=== PATIENT | male | born 1965 | race Caucasian/White ===

== ENCOUNTER 2022-04-02 08:12 | Outpatient (CLI) | payer BC, SELFPAY ==
--- NOTE | 2022-04-02 09:00 | CRLHL7_ITS ---
For Patients: As a result of the Century Cures Act, medical imaging exams and procedure reports are released immediately into your electronic medical record. You may view this report before your referring provider. If you have questions, please contact your health care provider. Indication: Diverticulitis 1 month ago, follow-up Technique: Postcontrast CT abdomen and pelvis. Oral water. 98 cc Isovue 370 intravenous contrast. Please note that all CT scans at this facility use dose modulation, iterative reconstruction, and/or weight-based dosing when appropriate to reduce radiation dose to as low as reasonably achievable. Comparison: 09/15/2018 Findings: Lung bases clear. Fatty liver. Gallbladder normal. Splenic calcifications. Adrenal glands normal. Normal kidneys. Bladder normal. Prostate heterogeneous. Diverticular change to the colon. No acute inflammation. No fistula, free air, free fluid, abscess or obstruction. No adenopathy. Normal ureters. Pancreas normal. Incidental duodenal diverticulum. Multilevel discogenic spurring. No fracture. Impression: Colonic diverticulosis. No residual inflammation. Please note that all CT scans at this facility use dose modulation, iterative reconstruction, and/or weight-based dosing when appropriate to reduce radiation dose to as low as reasonably achievable. Dictated by Quentin Sy MD @ 04/02/2022 12:05:59 PM (Electronically Signed)
== END 2022-04-02 08:13 | disposition home or self-care (01) ==
LOC: CT 08:13
PROVIDERS: PCP Physician Assistant Medical; Visit Provider Physician Assistant Medical
DX: K57.92 Diverticulitis of intestine, part unspecified, without perforation or abscess without bleeding (principal)
CPT/HCPCS: 74177; Q9967

== ENCOUNTER 2022-08-30 08:47 | Outpatient (CLI) | payer BC, SELFPAY | END 2022-08-30 08:48 | disposition home or self-care (01) | LOC: NFLDREF 09-01 10:04 | PROVIDERS: PCP Physician Assistant Medical; Referring Provider Physician Assistant Medical; Visit Provider Physician Assistant Medical | DX: E34.9 Endocrine disorder, unspecified (principal); E11.9 Type 2 diabetes mellitus without complications | CPT/HCPCS: 84403 ==

== ENCOUNTER 2022-11-26 07:25 | Outpatient (CLI) | payer BC, SELFPAY | END 2022-11-26 07:26 | disposition home or self-care (01) | LOC: NFLDREF 20:28 | PROVIDERS: PCP Physician Assistant Medical; Referring Provider Physician Assistant Medical; Visit Provider Physician Assistant Medical | DX: E34.9 Endocrine disorder, unspecified (principal); E78.5 Hyperlipidemia, unspecified; E11.9 Type 2 diabetes mellitus without complications | CPT/HCPCS: 80061; 84403; 84450; 84460 ==

== ENCOUNTER 2023-02-25 07:34 | Outpatient (CLI) | payer BC, SELFPAY | END 2023-02-25 07:35 | disposition home or self-care (01) | LOC: NFLDREF 02-28 15:31 | PROVIDERS: PCP Physician Assistant Medical; Referring Provider Physician Assistant Medical; Visit Provider Physician Assistant Medical | DX: E11.9 Type 2 diabetes mellitus without complications (principal); N52.9 Male erectile dysfunction, unspecified; E78.5 Hyperlipidemia, unspecified; G25.81 Restless legs syndrome | CPT/HCPCS: 80053; 80061; 82043; 82570; 84153 ==

== ENCOUNTER 2024-02-23 15:48 | Outpatient (CLI) | payer BC, SELFPAY | END 2024-02-23 15:49 | disposition home or self-care (01) | LOC: NFLDREF 02-24 08:56 | PROVIDERS: PCP Physician Assistant Medical; Referring Provider Physician Assistant Medical; Visit Provider Physician Assistant Medical | DX: Z00.00 Encounter for general adult medical examination without abnormal findings (principal); E78.2 Mixed hyperlipidemia; E11.42 Type 2 diabetes mellitus with diabetic polyneuropathy; G47.00 Insomnia, unspecified; F41.9 Anxiety disorder, unspecified; G62.89 Other specified polyneuropathies | CPT/HCPCS: 80053; 80061; 82043; 82570; 84443 ==

== ENCOUNTER 2025-01-07 11:33 | Emergency (ER) | payer BC, SELFPAY ==
--- OUTSIDE RECORDS SUMMARY | 2022-03-19 06:15 | XMS_ITS | Continuity of Care Document ---
Author Organization [facility] enter Address [address] [place] [address] Phone Care Team Providers Care Director Supply Name Role Phone [facility] Unavailable Unava ilable Procedures Procedure Date INTERLAMINAR CRV OR THRC INTERLAMINAR CRV OR THRC INTERLAMINAR CRV OR THRC INTERLAMINAR CRV OR THRC Advance Directives Directive Yes / No Effective Date File Name No Information Encounters Encounter Description Practice Location Reason(s) For Visit Diagnoses Date Provider Providers Copied on Encounter [facility], [address] [place] [address], [id number], tel:[phone] [place] [address] No Information 2 [facility]. [address] [place] [address], [id number], [place]. tel:[phone] Referring Provider: Black Jean, [address] [place], [address] . tel:[phone] [facility], [address] [place] [address], [id number], tel:[phone] [place] [address] No Information 2 [facility]. [address] [place] [address], [id number], . tel:[phone] Referring Provider: Tulio Ness, [address] [place], [address]. tel:[phone] Family History Family Member Type Diagnosis Age At Onset No Information Payers Payer name Insurance type Covered green party ID Authorjanettea lebron(s) [facility] [id number] Social History Type Description Quantity Date Captured Comments Sex Male Smoking Status No Information Chief Complaint And Reason For Visit No Information Reason For Referral Reason For Referral No Information History Of Present Illness Encounter Date Complaint History Of Prese nt Illness No Information Functional Status Date Functional Assessmen t No Information Instructions Date Instruction Additional Infor mation No Information Assessments Type Assessment Date No Information Patient Care Teams Name Effective Dates (start - stop) Status Members No Information
--- OUTSIDE RECORDS SUMMARY | 2022-03-19 06:15 | XMS_ITS | Continuity of Care Document ---
Author Organization [facility] Address [address] [place] [address] Phone Care Team Providers Care Physician Practice Manager Name Role Phone Tde PARIKH, Black Unavailable Unavailable Allergies, Adverse Reactions, Alerts Substance Reaction Status Criticality bee venom protein (honey bee) Active No Information Medications Medication Instructions Dosage Effective Dates (start - stop) Status Comments diclofenac sodium 50 mg tablet,delayed release take 1 tablet by oral route 2 times every day 50 MG - Active Compounded Medication Apply thin layer to affected area (knees, ankles) up to 4x/day - Active Flurbiprofen 10% , baclofen 2%, lidocaine 5%, gabapentin 6% metformin 1,000 mg tablet take 1 tablet by oral route every day with morning and evening meals 1000 MG - Active alprazolam 1 mg tablet take 1 tablet by oral route every day 1 MG - Active sertraline 50 mg tablet take 1 tablet by oral route every day 50 MG - Active cyclobenzaprine 10 mg tablet take 1 Tablet by oral route 3 times every day 10 MG - Active Procedures Procedure Date INTERLAMINAR CRV OR THRC OFFICE/OUTPATIENT VISIT, EST INTERLAMINAR CRV OR THRC Drug Urine Toxology With Chromatography Drug test def 1-7 classes OFFICE/OUTPATIENT VISIT, EST INJ TRIGGER POINT, 1/2 MUSCL OFFICE CONSULTATION Advance Directives Directive Yes / No Effective Date File Name No Information Encounters Encounter Description Practice Location Reason(s) For Visit Diagnoses Date Provider Providers Copied on Encounter [facility], [address] [place] [address], [id number] , [place] [phone] [facility] Other intervertebral disc degeneration, thoracic region 2 Ted Black. [address] [place] [address], [id number], [place]. tel:[phone] Referring Provider: Black Bryant, [address] [place], [place] [address]José [place], [address] . tel:[phone] OFFICE/OUTPAT IENT VISIT, EST [facility], [address] [place] [address], [id number] , [place] tel:[phone] [facility] Back pain (chief complaint) Chronic pain syndromeBilater al primary osteoarthritis of kneePain in right ankle and joints of right footOther intervertebral disc degeneration, thoracic regionMyalgia, other siteLong term (current) use of opiate analgesic 2 Pearl Jenna. [address], [place], [place], [id number], [place]. tel:[phone] Referring Provider: Black Bryant, [address] [place] [address] [place], [address] . tel:[phone] [facility], [address] [place] [address], [id number] , [place] tel:[phone] [facility] Other intervertebral disc degeneration, thoracic region 2 Thi Antunez. [facility], [address], [place], [address], [place]. tel:[phone] Referring Provider: Black Bryant, [address] [place] [address] [place], [address] . tel:[phone] [facility], [address] [place] [address], [id number] , [place] tel:[phone] [facility] No Information 2 Pearl Jenna. [address], [place], [place], [id number], [place]. tel:[phone] OFFICE/OUTPAT IENT VISIT, EST [facility], [address] [place] [address], [id number] , [place] tel:[phone] [facility] Back pain (chief complaint) Chronic pain syndromeBilater al primary osteoarthritis of kneePain in right ankle and joints of right footLong term (current) use of opiate analgesicEncoun ter for therapeutic drug level monitoringOther intervertebral disc degeneration, thoracic regionMyalgia, other site 2 Pearl West. [address], [place], [place], [id number], [place]. tel:[phone] Referring Provider: Black Bryant, [address] [place], [place] [address]Jos[place], [address] . tel:[phone] OFFICE CONSULTATION [facility], [address] [place] [address], [id number] , [place] tel:[phone] [facility] Back Pain (chief complaint) bilateral knee pain (chief complaint) Chronic pain syndromePain in thoracic spineBilateral primary osteoarthritis of kneeCausalgia of left lower limbCausalgia of right lower limbPain in right ankle and joints of right footLong term (current) use of opiate analgesic 0 Laron Styles. [address] [place] [address], [id number], [place]. tel:[phone] Referring Provider: Black Bryant, [address] [place] [address] [place], [address] . tel:[phone] [facility], [address] [place] [address], [id number] , [place] tel:[phone] [facility] No Information 0 No Information Referring Provider: Black Bryant, [address] [place], [place] [address]José [place], [address] . tel:[phone] Family History Family Member Type Diagnosis Age At Onset No Information Payers Payer name Insurance type Covered green party ID Authoriza tion(s) [facility] [id number] Social History Type Description Quantity Date Captured Comments Sex Male Smoking Status No Information Chief Complaint And Reason For Visit No Information Reason For Referral Reason For Referral No Information Plan Of Treatment Date Type Action Status Goal AST (SGOT). Due on due Goal ALT (SGPT). Due on due Goal UDT. Due on due Goal Creatinine. Due on due Goal Order Annual PT. Due on due Goal OARS. Due on due Goal AIRFIELD MANAGER Paperwork. Due on due Goal QUARRY PLANT CRUSHER OPERATOR Scanned. Due on due Goal Lipid panel. Due on due Goal PHQ-9. Due on du e Goal Weight. Due on d ue Goal CT-Colonography. Due on due Goal Medication Reconciliation. D ue on due Goal Review Allergy List. Due on due Goal Update Social History. Due o n due Goal Tobacco Use. Due on due Goal FIT-DNA. Due on due Goal Hepatitis C screening. Due o n due Goal Height. Due on d ue Goal Unhealthy drug use screening . Due on due Goal FIT. Due on due Goal Zoster vaccine (1st). Due on due Goal Creatinine. Due on due Goal OARS. Due on due Goal Order Annual PT. Due on due Goal UDT. Due on due Goal ALT (SGPT). Due on due Goal AIRFIELD MANAGER Paperwork. Due on due Goal AST (SGOT). Due on due Goal QUARRY PLANT CRUSHER OPERATOR Scanned. Due on due Goal Weight. Due on d ue Goal Hepatitis C screening. Due o n due Goal Unhealthy drug use screening . Due on due Goal CT-Colonography. Due on due Goal FIT-DNA. Due on due Goal Height. Due on d ue Goal PHQ-9. Due on du e Goal Review Allergy List. Due on due Goal Lipid panel. Due on due Goal FIT. Due on due Goal Zoster vaccine (1st). Due on due Goal Medication Reconciliation. D ue on due Goal Update Social History. Due o n due Goal Tobacco Use. Due on due Goal Weight. Due on d ue Goal Hepatitis C screening. Due o n due Goal Unhealthy drug use screening . Due on due Goal CT-Colonography. Due on due Goal FIT-DNA. Due on due Goal Height. Due on d ue Goal PHQ-9. Due on du e Goal Review Allergy List. Due on due Goal Lipid panel. Due on due Goal FIT. Due on due Goal Zoster vaccine (1st). Due on due Goal Medication Reconciliation. D ue on due Goal Update Social History. Due o n due Goal Tobacco Use. Due on due Goal Creatinine. Due on due Goal OARS. Due on due Goal Order Annual PT. Due on due Goal UDT. Due on due Goal ALT (SGPT). Due on due Goal AIRFIELD MANAGER Paperwork. Due on due Goal AST (SGOT). Due on due Goal QUARRY PLANT CRUSHER OPERATOR Scanned. Due on due Referral Ordered: MRI THORACIC SPINE W/O DYE ordered History Of Present Illness Encounter Date Complaint History Of Prese nt Illness Back pain Severity level i s 9. Duration: chronic. The problem is stable. It occurs persistently. Location of pain is middle back. The client describes the pain as sharp and tingling. Symptoms are aggravated by ascending stairs, bending, descending stairs, lifting, lying/rest, sitting, housework and movement. Symptoms are relieved by pain meds/drugs and rest. Comments: Lc metcalf s a 56 y/o man here for follow up consult regarding chronic lower back pain, BL knee, and BL ankle/foot pain. Pain is stable since JOSH and pain level is 9/10. Pain the most noticeable when he is very active, and when he tries to sleep at night or lie down. Back pain is primarily qmo-dj-zgaeq thoracic region (R>L). S/p T10-T11 Interlaminar Epidural Steroid Injection on 01/29/22 with no benefit. Inquires whether he should have a repeat injection and/or at a different level. Also inquires what can be done for knee and ankle pain as it is causing him to have a less favorable quality of life. Notes that his L knee no longer has cartilage. He is trying to schedule orthopedic consult at [facility]. Currently managed on Flexeril and CBD which provides moderate pain relief for increased functionality. Denies side effects from current medication regimen.No other concerns today. Comments: Lc metcalf s a 56 y/o man here for follow up consult regarding chronic lower back pain, BL knee, and BL ankle/foot pain Pain level is 9/10. Reports that he notices his pain the most when he is very active, and when he tries to sleep at night or lie down. Back pain is primarily los-ve-norkw thoracic region. Reports that he has done PT in the past. Also reports that he has had cortisone and rooster comb injections in BL knees that he would get every six weeks with benefit.Of note, he has not been in clinic since 2019.Currently managed on Flexeril which provides moderate pain relief for increased functionality. Reports that he does not want to be taking opioids; reports that they upset his stomach. Interested in medical cannabis re-certification.No other concerns today. Back pain Severity level i s 9. Duration: chronic. The problem is worsening. It occurs persistently. Location of pain is lower back. Pain is radiated to the left ankle, right ankle and BL knees. The client describes the pain as an ache and tingling. Symptoms are aggravated by ascending stairs, descending stairs, lying/rest, standing, twisting, walking, movement and prolonged positioning. Back Pain (comments) Lc martínez martinez for a virtual consult, referred by Dr. Nam at [facility]. The patient is a 54 y/o with back, bilateral knee, and bilateral ankle pain. Pain started about 4 years ago. Denies specific injury or inciting event. He was in the for several years and has been told that this contributed to OA of his joints. Per pt, he has a bulging disc in the thoracic region identified via x-ray. Pain is worse on the right side and radiates to his side. When pain flares it takes his breath away. Back pain is described as sharp. He completed a series of PT through [facility] about a year ago. Notes limited benefit following PT, no longer doing HEP.Ongoing pain of bilateral knees, R>L. ain is located in the back of the knees. Reports decreased ROM and inflammation in the knees. He has undergone arthroscopy for the right and left knee, approximately 6-8 yrs ago. Recent surgical consult at [facility]--surgeon recommended waiting for knee replacements until pt is 61 y/o. Reports diminishing benefit with cortisone and rooster comb injections. He wears compression socks and occasionally wears a knee brace.He currently manages pain with Tylenol. Was prescribed #30 tabs of [place] 5/325 on 09/21/19, managed by Dr. Nam. He was also recently certified for medical cannabis, which has provided significant sleep benefit, but causes side effects. Reports trying a cream from his that helped with his joint pain. Is open to options. No other concerns today. bilateral knee pain Location: bi lateral knee. Back Pain Severity level i s 8. Duration: chronic. The problem is fluctuating. It occurs persistently. Location of pain is lower back, BL knee and ankles.The patient describes the pain as an ache, numbness, sharp and tingling. Symptoms are aggravated by ascending stairs, bending, daily activities, descending stairs, lifting, standing, twisting and walking. Symptoms are relieved by heat, ice, pain meds/drugs, rest and medical cannabis. Functional Status Date Functional Assessmen t No Information Instructions Date Instruction Additional Infor mation No Information Assessments Type Assessment Date No Information Patient Care Teams Name Effective Dates (start - stop) Status Members No Information
--- OUTSIDE RECORDS SUMMARY | 2022-03-19 06:15 | XMS_ITS | Continuity of Care Document ---
Author Organization [facility] Address [address] [place] [address] Phone Care Team Providers Care Public Health Microbiologist Name Role Phone Ted PARIKH, Black Unavailable Unavailable Allergies, Adverse Reactions, [...] Diagnoses Date Provider Providers Copied on Encounter [facility], [address] [place] [address], [id number] , [place] [phone] [facility] Other intervertebral disc degeneration, thoracic region 2 Ted Black. [address] [place] [address], [id number], [place]. tel:[phone] Referring Provider: Black Bryant, [address] [place], [place] [address]José [place], [address] . tel:[phone] OFFICE/OUTPAT IENT VISIT, EST [facility], [address] [place] [address], [id number] , [place] tel:[phone] [facility] Back pain (chief complaint) Chronic pain syndromeBilater al primary osteoarthritis of kneePain in right ankle and joints of right footOther intervertebral disc degeneration, thoracic regionMyalgia, other siteLong term (current) use of opiate analgesic 2 Pearl Jenna. [address], [place], [place], [id number], [place]. tel:[phone] Referring Provider: Black Bryant, [address] [place] [address] [place], [address] . tel:[phone] [facility], [address] [place] [address], [id number] , [place] tel:[phone] [facility] Other intervertebral disc degeneration, thoracic region 2 Thi Antunez. [facility], [address], [place], [address], [place]. tel:[phone] Referring Provider: Black Bryant, [address] [place] [address] [place], [address] . tel:[phone] [facility], [address] [place] [address], [id number] , [place] tel:[phone] [facility] No Information 2 Pearl Jenna. [address], [place], [place], [id number], [place]. tel:[phone] OFFICE/OUTPAT IENT VISIT, EST [facility], [address] [place] [address], [id number] , [place] tel:[phone] [facility] Back pain (chief complaint) Chronic pain syndromeBilater al primary osteoarthritis of kneePain in right ankle and joints of right footLong term (current) use of opiate analgesicEncoun ter for therapeutic drug level monitoringOther intervertebral disc degeneration, thoracic regionMyalgia, other site 2 Pearl West. [address], [place], [place], [id number], [place]. tel:[phone] Referring Provider: Black Bryant, [address] [place], [place] [address]José [place], [address] . tel:[phone] OFFICE CONSULTATION [facility], [address] [place] [address], [id number] , [place] tel:[phone] [facility] Back Pain (chief complaint) bilateral knee pain (chief complaint) Chronic pain syndromePain in thoracic spineBilateral primary osteoarthritis of kneeCausalgia of left lower limbCausalgia of right lower limbPain in right ankle and joints of right footLong term (current) use of opiate analgesic 0 Laron Styles. [address] [place] [address], [id number], [place]. tel:[phone] Referring Provider: Black Bryant, [address] [place] [address] [place], [address] . tel:[phone] [facility], [address] [place] [address], [id number] , [place] tel:[phone] [facility] No Information 0 No Information Referring Provider: Black Bryant, [address] [place], [place] [address]José [place], [address] . tel:[phone] Family History Family Member Type Diagnosis Age At Onset No Information Payers Payer name Insurance type Covered alliance party ID Authoriza tion(s) [facility] [id number] Social History Type Description Quantity Date Captured [...] due Goal OARS. Due on due Goal TOEING STOCKINGS Paperwork. Due on due Goal SALESPERSON [place] AND GLASSWARE Scanned. Due on due Goal Lipid panel. [...] Goal ALT (SGPT). Due on due Goal TOEING STOCKINGS Paperwork. Due on due Goal AST (SGOT). Due on due Goal SALESPERSON [place] [employer]ASS[employer] Scanned. Due on due Goal Weight. Due [...] Goal ALT (SGPT). Due on due Goal TOEING STOCKINGS Paperwork. Due on due Goal AST (SGOT). Due on due Goal SALESPERSON [place] AND GLASSWARE Scanned. Due on due Referral Ordered: MRI [...] or lie down. Back pain is primarily vjk-mf-jeiyp thoracic region (R>L). S/p T10-T11 Interlaminar Epidural [...] is trying to schedule orthopedic consult at [facility]. Currently managed on Flexeril and CBD [...] or lie down. Back pain is primarily jpb-zv-pyqqs thoracic region. Reports that he has done [...] virtual consult, referred by Dr. Nam at [facility]. The patient is a 54 y/o with [...] He completed a series of PT through [facility] about a year ago. Notes limited benefit following PT, no longer doing HEP.Ongoing pain of bilateral knees, R>L. ain is located in the back of the knees. Reports decreased ROM and inflammation in the knees. He has undergone arthroscopy for the right and left knee, approximately 6-8 yrs ago. Recent surgical consult at [facility]--surgeon recommended waiting for knee replacements until pt is 61 y/o. Reports diminishing benefit with cortisone and rooster comb injections. He wears compression socks and occasionally wears a knee brace.He currently manages pain with Tylenol. Was prescribed #30 tabs of [place] 5/325 on 09/21/19, managed by Dr. Nam. [...]
--- OUTSIDE RECORDS SUMMARY | 2022-03-19 06:15 | XMS_ITS | Continuity of Care Document ---
Author Organization [facility] enter Address [address] [place] [address] Phone Care Team Providers Care Community Health Representative Name Role Phone [facility] Unavailable Unava ilable Procedures Procedure Date INTERLAMINAR CRV OR THRC INTERLAMINAR CRV OR THRC INTERLAMINAR CRV OR THRC INTERLAMINAR CRV OR THRC Advance Directives Directive Yes / No Effective Date File Name No Information Encounters Encounter Description Practice Location Reason(s) For Visit Diagnoses Date Provider Providers Copied on Encounter [facility], [address] [place] [address], [id number], tel:[phone] [place] [address] No Information 2 [facility]. [address] [place] [address], [id number], [place]. tel:[phone] Referring Provider: Black Jean, [address] [place], [address] . tel:[phone] [facility], [address] [place] [address], [id number], tel:[phone] [place] [address] No Information 2 [facility]. [address] [place] [address], [id number], . tel:[phone] Referring Provider: Tulio Ness, [address] [place], [address]. tel:[phone] Family History Family Member Type Diagnosis Age At Onset No Information Payers Payer name Insurance type Covered democrat ID Authorjanettea lebron(s) [facility] [id number] Social History Type Description Quantity Date Captured [...]
[2025-01-07] VITALS (9 sets, daily range): BP systolic 127–147; BP diastolic 78–85; PULSE 63–71; RESP 20; TEMP 36.1; O2SAT 94–97
--- NOTE | 2025-01-07 11:47 | ED_ITS ---
HPI - General Adult General Date Seen: 01/07/25 Chief complaint: Chest Pain Stated complaint: chest pain Time Seen by Provider: 01/07/25 11:47 History of Present Illness HPI narrative: 59-year-old gentleman referred to the ER today from the clinic for evaluation of chest pain. He has a history of type 2 diabetes, sleep apnea, hyperlipidemia, peripheral neuropathy, restless legs syndrome, fatty liver. Per notes from the clinic he woke up from sleep at about 330 this morning with sweatiness and tightness in his chest with shortness of breath. Like something was sitting on his chest. he was short of breath. He has a family history of coronary artery disease. Other risk factors include obesity, type 2 diabetes, hyperlipidemia. He has no personal history of coronary disease. He uses marijuana at night for his peripheral neuropathy. He does note that he had an episode of chest discomfort that happened about 3 or 4 months ago. Was single episode any did not go to the doctor for it. He has been healthy and well lately. Normal activity. He cut the lawn yesterday without any shortness of breath or chest pain. He did E canes checking yesterday for dinner. His current symptoms started about 330 in the morning. He was awoken from sleep. He had a squeezing discomfort in his central lower chest. It made him mildly short of breath. It lasted for several hours. He had to get up and pace around. He had a squeezing discomfort in his lower chest. Also little bit of abdominal pain pretty was nauseous. He felt short of breath. No pleuritic pain. No pain through to the back. He did take some aspirin (2 baby aspirin) at around 7. He called his clinic this morning because he had several hours of persistent discomfort and he went to the clinic. There he had an EKG that showed a right bundle branch block pattern. He had labs and he reports that he had a troponin level that was normal. Because of his persisting pain his clinic call an ambulance for him. He was transferred by ambulance from the clinic here to the hospital. While in the ambulance he notes that his pain resolved. He received an additional aspirin 162 mg by EMS. No nitro was given. Upon arrival here to the ER he has no ongoing symptoms. No recent travel or immobilization. No recent leg swelling. He has no personal history of coronary disease. Related Data Home Medications ?Medication ?Instructions ?Recorded ?Confirmed cyclobenzaprine 10 mg tablet 10 mg PO .Bedtime as need ed PRN 03/30/22 01/07/25 Previous Rx's ?Medication ?Instructions ?Recorded gabapentin 300 mg capsule 300 mg PO QHS #90 caps 02/22 trazodone 100 mg tablet 100 - 150 mg (1 - 1.5 x 100 mg) PO 02/23/24 QHS 90 days #135 tabs sertraline 100 mg tablet 100 mg PO QDAY #90 tabs 11/07 atorvastatin 20 mg tablet 20 mg PO QDAY #90 tabs 07/24 sildenafil 50 mg tablet 50 mg PO .As Needed PRN sexu al 08/03/24 activity #30 tabs tirzepatide 10 mg/0.5 mL 10 mg (0.5 mL) subcut QWEEK #2 mL 08/20/24 subcutaneous pen injector (Mounjaro) testosterone cypionate 200 mg/mL 100 mg (0.5 mL) IM QW T[place] #6 mL 11/05/24 intramuscular oil Allergies Allergy/AdvReac Type Severity Reaction Status Date / Time bee venom protein (honey bee) Allergy Mild Anaphylaxis Verified 01/07/25 11:39 [facility] Medical History (Updated 01/07/25 @ 14:35 by Pj Guido MD) Progressive angina ?I20.0 - Unstable angina (ICD-10) Chest pain ?R07.9 - Chest pain, unspecified (ICD-10) SOB (shortness of breath) ?R06.02 - Shortness of breath (ICD-10) Chronic low back pain ?M54.50 - Low back pain, unspecified (ICD-10) ?G89.29 - Other chronic pain (ICD-10) Herniation of intervertebral disc of thoracic region ?M51.24 - Other intervertebral disc displacement, thoracic region (ICD-10) Anxiety and depression ?F41.9 - Anxiety disorder, unspecified (ICD-10) ?F32.A - Depression, unspecified (ICD-10) Diverticulitis ?K57.92 - Diverticulitis of intestine, part unspecified, without perforation or abscess without bleeding (ICD-10) 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) ?K14.1 - Geographic tongue (ICD-10) Dislocation of temporomandibular joint ?S03.00XA - Dislocation of jaw, unspecified side, initial encounter (ICD-10) Surgical History History of total knee replacement (TKR) ?Z96.659 - Presence of unspecified artificial knee joint (ICD-10) History of vasectomy (02/12/10) ?Z98.52 - Vasectomy status (ICD-10) History of umbilical hernia repair ?Z98.890 - Other specified postprocedural states (ICD-10) ?Z87.19 - Personal history of other diseases of the digestive system (ICD-10) History of colonoscopy ?Z98.890 - Other specified postprocedural states (ICD-10) History of arthroscopy of knee (09/27/11) ?Z98.890 - Other specified postprocedural states (ICD-10) Family History Father Stroke Heart disease High blood pressure Sister Heart disease Social History Narrative: Consumes alcohol occasionally Does not use illicit drugs Non-smoker What is your current living situation?: I presently have a place to live Problems where you live: no known problems In the past 12 months, utilities in danger of being shut off: no In past 12 months, lack of transportation kept you from medical appts, meetings, work, or getting things needed for daily living: no In the past 12 mos, have been you worried that your food would run out before you had money to buy more?: never true In the past 12 mos, the food you bought just didn't last and you didn't have money to buy more?: never true Smoking Status: Never smoker How often does anyone, including family, friends and others, physically hurt you : never How often does anyone, including family, friends and others, insult or talk down to you: never How often does anyone, including family, friends and others, threaten you with harm: never How often does anyone, including family, friends and others, scream or curse at you: never Exam Narrative: Exam Narrative: Constitutional: Appears well-developed and well-nourished. Alert. Conversant. Non toxic. HENT: Head: Atraumatic. Nose: Nose normal. Mouth/Throat: Oral mucosa is clear and moist. no trismus. Pharynx normal. Tonsils symmetric. No tonsillar enlargement, erythema, or exudate. Eyes: Conjunctivae normal. EOM normal. Pupils equal, round, and reactive to light. No scleral icterus. Neck: Normal range of motion. Neck supple. No tracheal deviation present. No JVD Cardiovascular: Normal rate, regular rhythm. No gallop. No friction rub. No murmur heard. Symmetric radial and PT artery pulses Pulmonary/Chest: Effort normal. No stridor. No respiratory distress. No wheezes. No rales. No rhonchi . No tenderness. Abdominal: Soft. Bowel sounds normal. No distension. No mass. Epigastric and periumbilical tenderness. No rebound. No guarding. Musculoskeletal: RUE: Normal range of motion. No tenderness. No deformity LUE: Normal range of motion. No tenderness. No deformity RLE: Normal range of motion. No edema. No tenderness. No deformity LLE: Normal range of motion. No edema. No tenderness. No deformity Neurological: Alert and oriented to person, place, and time. Normal strength. CN II-VII intact. No sensory deficit. GCS eye subscore is 4. GCS verbal subscore is 5. GCS motor subscore is 6. Normal coordination Skin: Skin is warm and dry. No rash noted. No pallor. Normal capillary refill. Psychiatric: Normal mood. Normal affect. He is calm and polite. He wonders if this might have been a panic attack. Const: Vital Signs, click to edit/add: Vital Signs - 24 hr 01/07/25 11:46 01/07/25 11:51 01/07/25 12:00 Temperature 97.0 F L Pulse Rate 65 67 Pulse Rate [Pulse Oximeter] 70 Respiratory Rate 20 Blood Pressure Blood Pressure [Ri ght Upper Arm] 131/79 Pulse Oximetry 94 97 Oxygen Delivery Me thod Room Air 01/07/25 12:02 01/07/25 12:03 01/07/25 12:15 Temperature Pulse Rate 66 63 65 Pulse Rate [Pulse Oximeter] Respiratory Rate Blood Pressure 146/85 H Blood Pressure [Ri ght Upper Arm] Pulse Oximetry 96 96 95 Oxygen Delivery Me thod 01/07/25 12:16 01/07/25 12:31 01/07/25 14:41 Temperature Pulse Rate 69 71 Pulse Rate [Pulse Oximeter] Respiratory Rate Blood Pressure 147/81 H 136/81 127/78 Blood Pressure [Ri ght Upper Arm] Pulse Oximetry 96 96 Oxygen Delivery Me thod Course Vital Signs Vital signs: Initial Vital Signs Temperature 97.0 F L 01/07/25 11:46 Temperature Source Temporal Artery Scan 01/07/25 11:46 Pulse Rate 70 01/07/25 11:46 Respiratory Rate 20 01/07/25 11:46 Blood Pressure 131/79 01/07/25 11:46 Blood Pressure Mean 96 01/07/25 11:46 Oxygen Delivery Method Room Air 01/07/25 11:46 Vital Signs Temperature 97.0 F L 01/07/25 11:46 Pulse Rate 70 01/07/25 11:46 Respiratory Rate 20 01/07/25 11:46 Blood Pressure 131/79 01/07/25 11:46 Oxygen Delivery Method Room Air 01/07/25 11:46 Temperature 97.0 F L 01/07/25 11:46 Pulse Rate 71 01/07/25 14:41 Respiratory Rate 20 01/07/25 11:46 Blood Pressure 127/78 01/07/25 14:41 Pulse Oximetry 96 01/07/25 14:41 Oxygen Delivery Method Room Air 01/07/25 11:46 Medical Decision Making MDM Narrative Medical decision making narrative: This patient presents to the ER today for evaluation of lower substernal chest discomfort and squeezing with shortness of breath that awoke him from sleep at about 330 this morning.. Differential was broad. No evidence of palpitations, syncope or other cardiac dysrhythmia. Because of the chest pain he was sent to the ER today by EMS from his clinic. His clinic EKG did show a right bundle-branch block and a left anterior fascicular block. Initially was thought that the right bundle-branch block pattern was new, but in fact it was present on his EKG from 2021. We considered possible ACS, however workup with EKG and troponin is negative. Given time since onset of symptoms, we did check a 2nd troponin here in the ER. Combined with the 1st troponin from Urgent Care, I think this is sufficient to rule out non ST elevation [place]. HEART score is 5, which does put him at high risk category. Discussed this with the patient. He does not want stay in the hospital. I will order an outpatient stress test which can be done tomorrow. Initial order and initiation of prior authorization process started by our [facility] today.. EKG shows no evidence for pericarditis. Clinical presentation not suggestive of myocarditis. Chest x-ray shows no evidence for pneumonia, pneumothorax, pulmonary edema, pleural effusion, rib fracture, cardiomegaly. Mediastinum is normal on the x-ray. The patient has no ripping or tearing pain through to the back and has symmetric pulses on exam, no other acute neuro findings so I doubt aortic dissection. Risk of radiation and contrast exposure would outweigh the benefit of CT angiogram. He did have soap approved double thinners on exam. This raise possible concern for cholecystitis. Lipase is normal. Gallbladder ultrasound is normal. No evidence for cholecystitis or stones. We considered PE for this patient. However would be very unlikely since he had complete resolution of symptoms in route to the hospital. At this point the risk of contrast nephropathy and malignancy from radiation would outweigh the benefit. No wheezing or bronchospasm to suggest COPD/asthma. No signs of chest wall cellulitis, shingles, injury. Patient does raise a question about possible anxiety or panic attack. This could have been the cause for his symptoms. However I think he needs to more definitive workup to make sure this was not an atypical presentation of ACS With reasonable clinical confidence, I think the patient is safe for outpatient follow up. Discussed return precautions. Questions answered. Patient voices comfort with the plan. Lab Data Labs: Lab Results 01/07/25 Range/Units 12:55 WBC 7.39 (4.50-11.00) K/uL RBC 4.84 (4.30-5.90) m/uL Hgb 14.6 (13.5-17.5) gm/dL Hct 43.3 (37.0-53.0) % MCV 90 (80-100) fL MCH 30 (26-34) pg MCHC 34 (32-36) gm/dL RDW Coeff of Yolande 12.8 (11.5-15.5) % Plt Count 192 (140-440) K/uL Neut % (Auto) 61.6 (42.0-72.0) % Lymph % (Auto) 27.7 (20-44) % [place] % (Auto) 5.5 (0.0-11.0) % Eos % (Auto) 3.9 (0.0-7.0) % Baso % (Auto) 0.9 (0.0-3.0) % Neut # (Auto) 4.54 (1.7-7.0) K/uL Lymph # (Auto) 2.05 (0.90-2.90) K/uL [place] # (Auto) 0.40 (0.00-0.90) K/UL Eos # (Auto) 0.29 (0.00-0.50) K/uL Baso # (Auto) 0.07 (0.00-0.30) K/uL Abs Immat Gran (auto) 0.03 (0.00-0.30) K/uL Imm/Tot Granulo (auto) 0.4 % Sodium 136 (135-149) mmol/L Potassium 4.5 (3.6-5.1) mmol/L Chloride 102 (96-114) mmol/L Carbon Dioxide 27 (20-32) mmol/L Anion Gap 7 (7-15) mEq/L BUN 14 (7-30) mg/dL Creatinine 0.9 (0.5-1.5) mg/dL Estimated GFR 99 ml/min Glucose 102 (60-115) mg/dL Lactate 1.3 (0.5-1.9) mmol/L Calcium 9.4 (8.4-10.6) mg/dL Total Bilirubin 0.5 (0.1-1.5) mg/dL AST 33 (12-35) U/L ALT 41 (4-50) U/L Alkaline Phosphatase 81 (40-150) U/L Troponin I < 0.01 (0.01-0.04) ng/mL Total Protein 7.4 (6.0-8.3) g/dL Albumin 4.2 (3.3-5.0) g/dL Lipase 153 (23-300) U/L Imaging Data RUQ US: Attestation: I have reviewed the pertinent imaging results. Radiologist's impression: IMPRESSION: Hepatic steatosis. Chest x-ray: Attestation: I have reviewed the pertinent imaging results. My impression: normal Radiologist's impression: Impression: Diffusely increased interstitial markings commensurate with developing bronchial thickening versus pulmonary edema. ECG Data Attestation: I personally reviewed and interpreted this ECG as follows: Interpretation: Normal sinus rhythm Rate 65 PA interval 168 Normal QRS axis. Right bundle-branch block. Left anterior fascicular block. No ST segment elevation or depression. Nonspecific T-wave inversions in lead V1-V3. QT 424, QTC 440 Compared to EKG from 03/30/2022, right bundle branch block pattern is old. T- wave inversions in lead V1 and V2 are old. Lead V3 is new change. Discharge Plan Discharge Clinical Impression: Chest pain Patient Disposition: Home, Self-Care Condition: Stable Instructions: Chest Pain (ED) Additional Instructions: As we discussed, so far your workup looks reassuring. However when she had vomited your symptoms carefully. If you have more episodes of chest pain, shortness of breath, or any other concerning symptoms, return to the ER right away. I think it is very important for you to get more workup for your heart. I have ordered a stress test for you. Your stress test is scheduled for 01/08 with a 1:45pm arrival time. Please enter through the [facility] front entrance and follow the instructions provided on your phamphlet. Reminder to follow up with Dr. Cuadra to receive your stress test results. If you have any questions, please call [phone]. Please follow-up with your regular doctors office within 3-5 days to discuss the results of the stress test and have further workup. Prescriptions: No Action cyclobenzaprine 10 mg tablet 10 mg PO .Bedtime as needed PRN Rx Instructions: For muscle spasms. trazodone 100 mg tablet 100 - 150 mg PO QHS 90 Days Qty: 135 3RF gabapentin 300 mg capsule 300 mg PO QHS Qty: 90 0RF sertraline 100 mg tablet 100 mg PO QDAY Qty: 90 0RF atorvastatin 20 mg tablet 20 mg PO QDAY Qty: 90 1RF sildenafil 50 mg tablet 50 mg PO .As Needed PRN (Reason: sexual activity) Qty: 30 2RF Rx Instructions: TAKE 1 TAB 1 HOUR PRIOR TO INTERCOURSE Mounjaro 10 mg/0.5 mL pen injector 10 mg subcut QWEEK Qty: 2 3RF testosterone cypionate 200 mg/mL oil 100 mg IM QWEEK Qty: 6 1RF Rx Instructions: 0.5ml injected once weekly Follow Up/Referrals: Jessica Cuadra PA-C [Primary Care Provider, Family Practice] Stand Alone Forms: [employer], [place] Info Instructions
--- NOTE | 2025-01-07 12:23 | CRLHL7_ITS ---
For Patients: As a result of the Cures Act, medical imaging exams and procedure reports are released immediately into your electronic medical record. You may view this report before your referring provider. If you have questions, please contact your health care provider. INDICATION: Right upper quadrant pain. COMPARISON: No recent prior comparison study. Comparison is made to an abdominopelvic CT dated 04/02/2022. TECHNIQUE: Right upper quadrant grayscale and limited color Doppler ultrasound. FINDINGS: Liver: Diffuse homogeneous increased hepatic parenchymal echotexture consistent with steatosis. Differential diagnostic considerations include chronic hepatitis and cirrhosis. Smooth contour. No suspicious focal lesion. No intrahepatic biliary ductal dilatation. Normal hepatopedal portal venous blood flow. Gallbladder: Nondistended. Free of stones or significant sludge. Normal wall thickness. Negative sonographic Monk sign. CBD: 5mm Pancreas: Body habitus limits interpretation. Largely obscured by overlying bowel gas and therefore incompletely evaluated. Right Kidney: Normal echotexture. No hydronephrosis. No convincing sonographic evidence of nephrolithiasis. Midline Vasculature: Unremarkable where visualized. Peritoneal Cavity: No significant ascites. Additional Findings: None. IMPRESSION: Hepatic steatosis. Dictated by Sanjeev Osullivan MD @ 01/07/2025 1:20:53 PM (Electronically Signed)
--- NOTE | 2025-01-07 12:23 | CRLHL7_ITS ---
For Patients: As a result of the Century Cures Act, medical imaging exams and procedure reports are released immediately into your electronic medical record. You may view this report before your referring provider. If you have questions, please contact your health care provider. Indication: Chest pain and shortness of breath Comparison: Two-view chest July 13, 2016 Technique: PA and lateral views of the chest Findings: There are diffusely increased interstitial markings commensurate with pulmonary vascular congestion and/or central bronchial thickening. No dense consolidation, effusion or pneumothorax. The cardiomediastinal silhouette is within normal limits. The bony thorax is grossly intact. Impression: Diffusely increased interstitial markings commensurate with developing bronchial thickening versus pulmonary edema. Dictated by Estevan Whelan MD @ 01/07/2025 1:40:49 PM (Electronically Signed)
[2025-01-07 13:04] LABS: Hematocrit 43.3 % (37.0-53.0); Hemoglobin* 14.6 gm/dL (13.5-17.5); Immature Granulocytes Abs Auto 0.03 K/uL (0.00-0.30); Immature Granulocytes Pct Auto 0.4 %; Lymphocytes Absolute Auto 2.05 K/uL (0.90-2.90); Mean Corpuscular HGB Conc 34 gm/dL (32-36); Mean Corpuscular Hemoglobin 30 pg (26-34); Mean Corpuscular Volume 90 fL (80-100); RDW Coefficient of Variation % 12.8 % (11.5-15.5); Red Blood Count 4.84 m/uL (4.30-5.90); White Blood Count* 7.39 K/uL (4.50-11.00)
[2025-01-07 13:06] LABS: Lactate* 1.3 mmol/L (0.5-1.9)
[2025-01-07 13:08] LABS: Slide Review Reflex No
[2025-01-07 13:16] LABS: Albumin* 4.2 g/dL (3.3-5.0); Chloride* 102 mmol/L (96-114)
[2025-01-07 13:17] LABS: Potassium* 4.5 mmol/L (3.6-5.1); Sodium* 136 mmol/L (135-149)
[2025-01-07 13:19] LABS: Alanine Aminotransferase* 41 U/L (4-50); Alkaline Phosphatase* 81 U/L (40-150); Anion Gap 7 mEq/L (7-15); Aspartate Amino Transferase* 33 U/L (12-35); Bilirubin Total* 0.5 mg/dL (0.1-1.5); Blood Urea Nitrogen* 14 mg/dL (7-30); Carbon Dioxide* 27 mmol/L (20-32); Creatinine* 0.9 mg/dL (0.5-1.5); Estimated Glomerular Filt Rate 99 ml/min
[2025-01-07 13:20] LABS: Calcium* 9.4 mg/dL (8.4-10.6); Glucose* 102 mg/dL (60-115); Total Protein* 7.4 g/dL (6.0-8.3)
== END 2025-01-07 14:57 | disposition home or self-care (01) ==
PROVIDERS: Emergency Provider Emergency Medicine; PCP Physician Assistant Medical
DX: R07.9 Chest pain, unspecified (principal)
CPT/HCPCS: 36415; 71046; 76705; 80053; 83605; 83690; 84484; 85025; 99283; 99284

== ENCOUNTER 2025-01-08 13:22 | Outpatient (CLI) | payer BC, SELFPAY ==
--- NOTE | 2025-01-08 14:24 | W.PM.STED ---
Stress Test Note Date Date Seen: 01/08/25 Date of test: 01/08/25 Providers Referring provider: Pj Guido Primary care provider: Jessica Cuadra Stress test physician: Frida Burks Stress Test Note Stress test ordered: Stress Echo Indication for test: Chest pain Results discussion: Resting EKG: Sinus rhythm, 63 beats per minute. Right bundle branch block. Resting BP: 126/72 Stress test: Patient was consented on ordered stress test of treadmill stress ECHO and agrees to proceed. Standard Howard protocol was followed. Patient exercised to 8 minutes 2nd, stopping due to reaching exercise capacity. This was equivalent to 9.5 Mets. He had a maximum heart rate of 148 beats per minute which was 107% of a calculated target of 138. Rate pressure product was 22,496. Patient had no chest pain, no concerning symptoms. He had no arrhythmia, no diagnostic EKG changes indicative of ischemia. Echo images obtained and will be sent to Cardiology for formal reading to couple this for a final diagnostic report. Impression: Subjectively negative, objectively negative EKG portion of this stress test. Follow up suggested: Patient is discharged is stable condition. He has a follow up already scheduled for this in clinic, reviewed that the final report will very likely be available at that time of follow up to review with his primary provider.
[2025-01-08 14:50] VITALS: BP 152/78; PULSE 104; RESP 18
== END 2025-01-08 13:23 | disposition home or self-care (01) ==
LOC: STRESS 13:25
PROVIDERS: PCP Physician Assistant Medical; Visit Provider Emergency Medicine
DX: R07.9 Chest pain, unspecified (principal)
CPT/HCPCS: 93016; 93325; 93351

== ENCOUNTER 2025-04-22 13:31 | Outpatient (CLI) | payer BC, SELFPAY | END 2025-04-22 13:32 | disposition home or self-care (01) | LOC: NFLDREF 04-30 15:43 | PROVIDERS: PCP Physician Assistant Medical; Referring Provider Physician Assistant Medical; Visit Provider Physician Assistant Medical | DX: E11.9 Type 2 diabetes mellitus without complications (principal); E78.2 Mixed hyperlipidemia; Z00.00 Encounter for general adult medical examination without abnormal findings | CPT/HCPCS: 80061; 82043; 82570; 84443; G0103 ==